=== PATIENT | female | born 1975 | race Caucasian/White ===

== ENCOUNTER 2021-06-01 09:03 | Emergency (ER) | payer BC, SELFPAY ==
[2021-06-01 09:20] VITALS: BP 134/76; PULSE 91; RESP 18; TEMP 37.1; O2SAT 98; BMI 25.2
--- NOTE | 2021-06-01 09:55 | HMH.EDUTC ---
[facility] [place] Clinical Impression: Viral syndrome, Exposure to COVID-19 virus Disposition: Home, Self-Care Condition on Discharge: Good Instructions: DI for COVID-19 (Suspected or Confirmed ), Preventing the Spread of Coronavirus Discharge Instructions Additional Instructions: *Monitor Temp, Over the counter Motrin or Tylenol as directed/as needed Tylenol every 4 hours and Motrin every 6 hours (as long as your family doctor has told you that you can take it) for fever or pain. and straight to ER if unable to lower temp less than 101.0 after medication given *Warm salt water gargles may help to soothe the throat *Throat Lozenges *Warm fluids like tea with honey may help to soothe the throat *Sleep elevated *Humidifier/Vaporizer Follow up IMMEDIATELY for new or worsening symptoms or no Noticeable improvement over the next 48-72 hours. 911 for difficulty breathing or swallowing You were tested for today for COVID19 your test result should be back in the next 24-48 hours, you may call to the [facility] to see if your test results are back in the next 48 hours [phone] [facility] hours are 9am-9pm You was given a handout with instructions for Self Quarantine and Self isolation for while you wait on test results and what to do if they are positive If you are positive the Health Dept will be contacting you also Make sure to take your Vitamins Vit. C Vit D and Zinc if you can take them Prescriptions: guaiFENesin [Mucinex 600mg tablet] 1 - 2 tab PO BID #20 tab Transmission Status: Pending to [facility]/pharmacy #[id number] Referrals: Provider,Referral, [Primary Care Provider] - As needed Forms: Work/School Release Time of Disposition: 10:03 Medical Decision Making - Arnaud Inquiry Pt receiving controlled substance: No Arnaud was queried for this patient: No Vital Signs: 06/01/21 09:20 Temperature 98.8 F Temperature Source Oral Pulse Rate [Right Brachial] 91 H Respiratory Rate 18 Blood Pressure [Right Arm] 134/76 Blood Pressure Mean [Right Arm] 95 Blood Pressure Source [Right Arm] Automatic Cuff Blood Pressure Position [Right Arm] Sitting 02 Sat by Pulse Oximetry 98 Oxygen Delivery Method Room Air Orders (Tests/Meds): ORDERS Category Date Time Status Covid-19 Nasal PCR ([facility]) Routine Lab 06/01/21 09:27 Ordered [facility] [place] HPI - General Stated complaint: covid test Time Seen by Provider: 06/01/21 09:55 Mode of Arrival: Ambulatory Source of Information: Patient Limitations: No Limitations Description of Symptoms (Recalled from Triage Doc. by RN): PATIENT C/O HEADACHE, COUGH, AND CONGESTION SINCE LAST NIGHT. REQUESTING COVID TEST HEENT Symptoms (Recalled from RN notes): Yes Resp Symptoms (Recalled from RN notes): Yes Skin Symptoms (Recalled from RN notes): No MS Symptoms (Recalled from RN notes): No Functional Status (Recalled from RN notes): WNL - History of Present Illness Provider Complaint: Patient states that a co worker recently tested positive for COVID and she was around them last week State that she started feeling bad over the weekend with headache and now she is having cough, nasal congestion and body aches so she wanted to get tested for COVID - Related Data Previous Rx's Medication Instructions Recorded guaiFENesin [Mucinex 600mg tablet] 1 - 2 tab PO BID #20 tab 06/01/21 Allergies Allergy/AdvReac Type Severity Reaction Status Date / Time No Known Allergies Allergy Verified 06/01/21 09:55 - Worker's Comp Is this a Worker's Comp case?: No [facility] History - Hepatitis A Screen Drug use history?: No High risk sexual behaviors?: No History of sexually transmitted infection?: No Currently employed?: No Childcare worker?: No Do you have indoor plumbing?: Yes Do you have electricity?: Yes Attestation statement:: This patient has been screened for Hepatitis A risk factors. I have reviewed the patient's past medical history: Yes ROS Obtained: Yes All systems reviewed & no additional complain
[2021-06-01 10:04] VITALS: BP 134/76; PULSE 91; RESP 18; TEMP 37.1; O2SAT 98
--- NOTE | 2021-06-03 08:55 | PC.NURSE ---
notified pt of positive covid test result
== END 2021-06-01 10:07 | disposition home or self-care (01) ==
PROVIDERS: Emergency Provider Nurse Practitioner
DX: U07.1 COVID-19 (principal); B34.9 Viral infection, unspecified
CPT/HCPCS: 99202; G0463; U0003

== ENCOUNTER → 2023-05-26 10:28 | Outpatient (CLI) | payer OTHER, SELFPAY ==
--- NOTE | 2023-05-26 10:30 | XR_ITS ---
FINAL REPORT CLINICAL HISTORY: RT FOOT PAIN COMPARISON: None FINDINGS: RIGHT FOOT 3 views of the right foot were obtained. There is no acute fracture or dislocation. Visualized joint spaces are normally aligned. Soft tissues are unremarkable. IMPRESSION: No acute bony abnormality. Reviewed, Interpreted and Dictated by Darryl Loco MD Transcribed by Zuly Lai Authenticated and . [facility]
== END ==
PROVIDERS: PCP Family Medicine; Visit Provider Family Medicine
DX: M79.671 Pain in right foot (principal)
CPT/HCPCS: 73630

== ENCOUNTER 2025-07-26 09:57 | Outpatient (CLI) | payer OTHER, SELFPAY ==
--- NOTE | 2025-07-26 | XR_ITS ---
PROCEDURE INFORMATION: Exam: XR Right Foot Exam date and time: 07/26/2025 10:09 AM Age: 50 years old Clinical indication: Other: Plantar fasciitis TECHNIQUE: Imaging protocol: Radiologic exam of the right foot. Views: 3 or more views. COMPARISON: CR XR FOOT RT MIN 3V 05/26/2023 10:38 AM FINDINGS: Bones/joints: No acute fracture. No dislocation. Soft tissues: Normal. IMPRESSION: No acute findings.
--- OUTSIDE RECORDS SUMMARY | 2025-07-26 10:03 | XMS_ITS ---
Author Organization Unknown ENCOUNTERS Encounter Performer Location Date Diagnosis Diagnosis Status Emergency [id number] [place] [address] [id number] MERI *Note: Encounters from your own facility or health system may be excluded. Allergies, Adverse Reactions, Alerts Allergen Type Severity Identification Date Medications Name Date Quantity Days Supplied GPI Number
--- OUTSIDE RECORDS SUMMARY | 2025-07-26 10:03 | XMS_ITS | Patient Health Record ---
[facility] [address] [place] [id number] Care Team Providers Care Business Development Recruiter Name Role Phone Lorenzo Potter Primary Care Provider Faheem Caballero Unavailable [phone] Allergies No Known Allergies Results Component Value Reference Range Notes CBC Venipuncture (in house) (Not yet reviewed by provider) Interpretation: Performing Lab: Notes/Report: wbc 5.1 3.5 - 10 lymph 26.6% 15 - 50 mid 7.6% 2 - 15 gran 65.8% 35 - 80 rbc 4.65 3.5 - 5.5 hgb 14.0 11.5 - 16.5 hct 42.8 35 - 55 mcv 92.2 75 - 100 mch 30.2 25 - 35 mchc 32.8 31 - 38 platlet 302 100 - 400 Reason For Referral No Information Medications Medication SIG (Take, Route, Frequency, Duration) Notes Start Date End Date Status Cyclobenzaprine HCl 5 MG 1 tablet Orally three times a day as needed 01/13/2024 Not-Taking ZyrTEC Allergy 10 MG 1 tab(s) orally onc e a day Active Veozah 45 MG 1 tablet Orally Once a day; Duration: 30 day(s) Not-Taking Meloxicam 15 MG 1 tablet Orally Once a day; Duration: 90 days Active Problems Problem Type SNOMED Code ICD Code Onset Dates Problem Status W/U Status Risk Notes Problem Plantar fascial fibromatosis (72752562) Plantar fasciitis, right (M72.2) Active confirmed Problem Seasonal allergic rhinitis (206563572) Seasonal allergic rhinitis, unspecified trigger (J30.2) Active confirmed Vital Signs Heart Rate 87 /min 07/26/2025 Blood pressure diastolic 70 mm Hg 07/26/2025 Height 63.75 in 07/26/2025 Blood pressure systolic 130 mm Hg 07/26/2025 Weight 163.2 lbs 07/26/2025 BMI 28.23 kg/m2 07/26/2025 Encounters Encounter Location Date Provider Diagnosis [facility] [address] [facility] [address] [facility] [address] [place] [id number] 07/26/2025 Faheem Caballero Well adult exam Z00. 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 ; Plantar fasciitis, right M72.2 and Colon cancer screening Z12.11 Assessments Encounter Date Diagnosis (ICD Code) Assessment Notes Treatment Notes Treatment Clinical Notes Section Notes 07/26/2025 termite exterminator helper use of drug (ICD-10 - Z79.899) 07/26/2025 Well adult exam (ICD-10 - Z00.00) 07/26/2025 Plantar fasciitis, right (ICD-10 - M72.2) 07/26/2025 Colon cancer screening (ICD-10 - Z12.11) Plan Of Treatment Pending Test Test Name Order Date X ray : Foot, right 07/26/2025 colonoscopy 07/26/2025 CBC Venipuncture (in house) 07/26/2025 P-Comprehensive Metabolic Panel (CMP) P-Lipid Panel 07/26/2025 Next Appt Details Provider Name:Faheem Gandhi , 07/26/2025 09:15:00 AM, [address] [facility] [address] [facility], [address], [place], [phone], Insurance Providers Payer Name Payer Address Payer Phone Subscriber Number Group Number Insured Name Patient Relationship to Insured Coverage Start Date Coverage End Date [employer] [place] [id number] [place] [id number] JOSE UMANA Self - patient is the insured Medical (General) History Medical History History ICD Code Allergic Rhinitis kidney stones Surgical History Surgery Date(Month/Year) [place] Teeth Extracted 1994 2002 LT Breast Biopsy 2004 Partial Hysterectomy 2018
== END 2025-07-26 23:59 | disposition home or self-care (01) ==
PROVIDERS: PCP Family Medicine; Visit Provider Family Medicine
DX: M72.2 Plantar fascial fibromatosis (principal)
CPT/HCPCS: 73630